=== PATIENT | male | born 1960 | race Asian ===

== ENCOUNTER → 2023-04-24 | Emergency (ER) | payer MEDICARE, OTHER ==
[~2023-04-24] MED LIST: ACETAMINOPHEN 500 MG TAB ONE
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
[2023-04-24 21:22] VITALS: BP 138/86; TEMP 97.3; O2SAT 100
== END ==
LOC: ER 18:34
DX: G44.319 Acute post-traumatic headache, not intractable (principal); M54.2 Cervicalgia; M25.511 Pain in right shoulder; V59.40XA Driver of pick-up truck or van injured in collision with unspecified motor vehicles in traffic accident, initial encounter; G20.A1 Parkinson's disease without dyskinesia, without mention of fluctuations; Z95.0 Presence of cardiac pacemaker; Z88.1 Allergy status to other antibiotic agents; Z88.6 Allergy status to analgesic agent; Z88.5 Allergy status to narcotic agent; Z91.013 Allergy to seafood; Z91.040 Latex allergy status
CPT/HCPCS: 70450; 72125; 99283

== ENCOUNTER 2023-09-21 17:19 | Emergency (ER) | payer OTHER ==
[2023-09-21] MEDS ORDERED: LEVALBUTEROL 1.25 MG/3 ML NEB ONE (17:35)
[2023-09-21] MEDS ORDERED: NA CHLORIDE 0.9% 500 ML ONE (17:35)
[2023-09-21] MEDS ORDERED: METHYLPREDNISOLONE 125 MG INJ ONE (17:35)
[2023-09-21] MEDS ORDERED: predniSONE 20 MG TAB ONE (17:35)
[2023-09-21 17:48] LABS: Absolute Eosinophils 0.3 K/uL (0-0.5); Absolute Lymphocytes (CBC) 1.3 K/uL (0.7-4.9); Absolute Monocytes 0.5 K/uL (0.1-1.3); Absolute Neutrophil 7.4 K/uL (1.8-8.0); Basophils % 0.5 % (0-1.3); Eosinophils % 3.2 % (0-4.4); Hematocrit 38.6 % (39.6-49.0); Hemoglobin 13.1 g/dL (13.6-17.9); Lymphocytes % 13.1 % (15.3-44.8); MCH 34.4 pg (27.0-35.0); MCV 101.2 fL (80-100); MPV 7.1 fL (7.6-11.3); Monocytes % 5.2 % (3.3-12.3); Nucleated Red Blood Cells % 0.1 % (0-0); Platelets 209 thou/uL (152-406); RBC Red Blood Cell Count 3.82 M/uL (4.33-5.43); Red Cell Distribution Width 14.2 % (12.1-15.2)
[2023-09-21 17:53] LABS: PT Prothrombin Time 11.5 SECONDS (9.5-12.5); Protime INR 1.05
[2023-09-21 18:01] LABS: SARS-CoV-2 Antigen CONTROL BLUE LINE VIS/BG OK; SARS-CoV-2 Antigen Rapid Res Negative (Negative)
[2023-09-21 18:13] LABS: Albumin 3.8 g/dL (3.4-5.0); Albumin/Globulin Ratio 1.2 (1.1-1.8); Anion Gap 6.2 mEq/L (5.0-15.0); Bilirubin Direct 0.2 mg/dL (0-0.2); Bilirubin Indirect, Calculated 0.6 mg/dL (0.2-0.8); Bilirubin Total 0.8 mg/dL (0.2-1.0); Globulin 3.3 g/dL (2.3-3.5); Magnesium 2.6 mg/dL (1.6-2.4); Potassium 3.2 mEq/L (3.5-5.1); Protein, Total 7.1 g/dL (6.4-8.2); Troponin High Sensitivity 4.8 pg/mL (<58.9)
--- NOTE | 2023-09-21 18:23 | RAD REPORT ---
EXAM DESCRIPTION: Virginiat Single View09/21/2023 6:06 pm CLINICAL HISTORY: DYSPNEA COMPARISON: Chest Single View dated 08/28/2016; Chest Single View dated 05/15/2016; CHEST SINGLE VIEW d ated 12/03/2012; CHEST SINGLE VIEW dated 10/31/2009 TECHNIQUE: Portable AP view of the chest. FINDINGS: The lungs are clear. No pneumothorax or effusion. The cardiomediastinal contours are unre markable. Left chest wall pacer in place. Left atrial appendage occlusion device present. IMPRESSION: No acute cardiopulmonary process.
--- NOTE | 2023-09-21 18:35 | ER ---
Nurse's Notes [facility] Name: Justin Hancock Age: 63 yrs Sex: Male : 1960 Arrival Date: 09/21/2023 Time: 17:19 Bed 5 Private MD: Diagnosis: COPD/ Chronic obstructive pulmonary disease with (acute) exacerbation;Dyspnea;Hypokalemia Presentation: 09/20 17:25 Chief complaint: EMS states: "toned out for SOB that occurred while sitting at home. Pt mb9 gave himself 2 breathing treatments and had no relief.". Coronavirus screen: Vaccine status: Patient reports receiving the 2nd dose of the covid vaccine. Ebola Screen: No symptoms or risks identified at this time. Initial Sepsis Screen: Does the patient meet any 2 criteria? No. Patient's initial sepsis screen is negative. Does the patient have a suspected source of infection? No. Patient's initial sepsis screen is negative. Risk Assessment: Do you want to hurt yourself or someone else? Patient reports no desire to harm self or others. Onset of symptoms was September 21, 2023. 17:25 Method Of Arrival: EMS: [facility] mb9 17:25 Acuity: TOM 2 mb9 Triage Assessment: 17:29 General: Appears in no apparent distress. Behavior is calm, cooperative. Pain: Denies mb9 pain. EENT: No signs and/or symptoms were reported regarding the EENT system. Neuro: Santiago Agitation-Sedation Scale (RASS): 0 - Alert and Calm Level of Consciousness is awake, alert, obeys commands, Oriented to person, place, time, situation, Appropriate for age. Cardiovascular: Patient's skin is warm and dry. Respiratory: Reports shortness of breath Airway is patent Respiratory effort is even, unlabored, Respiratory pattern is regular, symmetrical. GI: No signs and/or symptoms were reported involving the gastrointestinal system. : No signs and/or symptoms were reported regarding the genitourinary system. Derm: Skin is pink, warm \\T\\ dry. Musculoskeletal: Range of motion: intact in all extremities. Historical: - Allergies: 17:26 clams; mb9 17:26 Demerol; mb9 17:26 Keflex; mb9 17:26 Latex; mb9 17:26 NSAIDS; mb9 17:26 Rocephin; mb9 17:26 Toradol; mb9 17:26 Tramadol HCl; mb9 - Home Meds: 17:26 carbidopa-levodopa 25-100 mg Oral tab twice a day [Active]; gabapentin 900 BID Oral tab mb9 twice a day [Active]; Weidman Carbonate Oral [Active]; atorvastatin oral [Active]; Albuterol Nebulizer [Active]; - PMHx: 17:26 Atrial fibrillation; GERD; Hypertension; HEART FAILURE; Bipolar disorder; CVA March; Myocardial infarction; Parkinsons; Pulmonary Embolism; - PSHx: 17:26 pacemaker; Watchman's procedure; Cholecystectomy; mb9 - Immunization history:: Adult Immunizations up to date. - Infectious Disease History:: Denies. - Social history:: Smoking status: Patient denies any tobacco usage or history of. Screenin:29 [facility] ED Fall Risk Assessment (Adult) History of falling in the last 3 months, mb9 including since admission No falls in past 3 months (0 pts) Confusion or Disorientation No (0 pts) Intoxicated or Sedated No (0 pts) Impaired Gait No (0 pts) Mobility Assist Device Used No (0 pt) Altered Elimination No (0 pt) Score/Fall Risk Level 0 - 2 = Low Risk Oriented to surroundings, Maintained a safe environment, Educated pt \\T\\ family on fall prevention, incl call for assistance when getting out of bed. Abuse screen: Denies threats or abuse. Nutritional screening: No deficits noted. Tuberculosis screening: No symptoms or risk factors identified. Assessment: 17:43 Reassessment: see triage assessment. mb9 Vital Signs: 17:25 BP 158 / 86; Pulse 74; Resp 18; Temp 98.2; Pulse Ox 100% ; Weight 72.57 kg; Height 5 mb9 ft. 5 in. ; 18:35 BP 117 / 80; Pulse 74; Resp 18; Pulse Ox 100% on R/A; mb9 17:25 Body Mass Index 26.63 (72.57 kg, 165.1 cm) mb9 ED Course: 17:24 Patient arrived in ED. nicolette 17:25 Charlie Dee MD is Attending Physician. [facility] 17:25 Yodit Gonzales RN is Primary Nurse. mb9 17:26 Triage completed. mb9 17:28 Arm band placed on. mb9 17:29 Placed in gown. Bed in low position. Call light in reach. Side rails up X 1. Provided mb9 Education on: press call light if needing anything. Client placed on continuous cardiac and pulse oximetry monitoring. NIBP monitoring applied. director home on. 17:42 SARS RAPID Sent. mb9 17:42 Flu Sent. mb9 17:43 Initial lab(s) drawn, by me, sent to lab. COVID swab sent to lab. Flu and/or RSV swab mb9 sent to lab. Inserted saline lock: 22 gauge in right forearm, using aseptic technique. 18:08 XRAY Chest (1 view) In Process Unspecified. EDMS 18:43 No provider procedures requiring assistance completed. IV discontinued, intact, mb9 bleeding controlled, No redness/swelling at site. Pressure dressing applied. Administered Medications: 17:42 Drug: NS 0.9% IV 500 ml IV at bolus once Route: IV; Rate: bolus; Site: right forearm; mb9 18:36 Follow up: Response: No adverse reaction; IV Status: Completed infusion mb9 17:42 Drug: MethylPrednisoLONE IVP 125 mg IVP once Route: IVP; Site: right forearm; mb9 18:36 Follow up: Response: No adverse reaction mb9 17:42 Drug: predniSONE PO 40 mg PO once Route: PO; mb9 18:36 Follow up: Response: No adverse reaction mb9 17:43 Drug: Levalbuterol Inhalation 1.25 mg Inhalation once Route: Inhalation; mb9 17:43 Drug: Levalbuterol Inhalation 1.25 mg Inhalation once Route: Inhalation; mb9 18:39 Drug: Potassium PO Effervescent Tablet 50 mEq PO once; dissolve in 4 ounces of water or mb9 juice Route: PO; Medication: 17:30 VIS not applicable for this client. mb9 Outcome: 18:35 Discharge ordered by . nicolette 18:43 Discharged to home ambulatory, mb9 18:43 Condition: stable 18:43 Discharge instructions given to patient, Instructed on discharge instructions, follow up and referral plans. Demonstrated understanding of instructions, follow-up care, medications, Prescriptions given X 4, 18:44 Patient left the ED. mb9 Signatures: Dispatcher [employer] Charlie Brandt MD MD cha Breneman, Yodit Sewell RN RN mb9
--- NOTE | 2023-09-21 18:36 | EDPHYS ---
Physician Documentation [facility] Name: Justni Hancock Age: 63 yrs Sex: Male : 1960 Arrival Date: 09/21/2023 Time: 17:19 Bed 5 Private MD: ED Physician Charlie Dee HPI: 09/20 17:28 This 63 yrs old Male presents to ER via EMS with complaints of DYSPNEA, COPD nicolette EXACERABATION. 17:28 The patient or guardian reports cough, difficulty breathing. Onset: The nicolette symptoms/episode began/occurred just prior to arrival. Modifying factors: The symptoms are alleviated by remaining still, the symptoms are aggravated by lying flat, talking. Severity of symptoms: At their worst the symptoms were moderate, in the emergency department the symptoms have improved, moderately. Associated signs and symptoms: Pertinent positives: rhinorrhea. Modifying factors: The symptoms are alleviated by nebulizer treatment, the symptoms are aggravated by damp environment, dust, exertion. Severity of symptoms: At their worst the symptoms were moderate in the emergency department the symptoms are unchanged. Historical: - Allergies: 17:26 clams; mb9 17:26 Demerol; mb9 17:26 Keflex; mb9 17:26 Latex; mb9 17:26 NSAIDS; mb9 17:26 Rocephin; mb9 17:26 Toradol; mb9 17:26 Tramadol HCl; 9 - Home Meds: 17:26 carbidopa-levodopa 25-100 mg Oral tab twice a day [Active]; gabapentin 900 BID Oral tab mb9 twice a day [Active]; Quentin Carbonate Oral [Active]; atorvastatin oral [Active]; Albuterol Nebulizer [Active]; - PMHx: 17:26 Atrial fibrillation; GERD; Hypertension; HEART FAILURE; Bipolar disorder; CVA March; Myocardial infarction; Parkinsons; Pulmonary Embolism; - PSHx: 17:26 pacemaker; Watchman's procedure; Cholecystectomy; - Immunization history:: Adult Immunizations up to date. - Infectious Disease History:: Denies. - Social history:: Smoking status: Patient denies any tobacco usage or history of. ROS: 17:29 Constitutional: Negative for fever, chills, and weight loss, Eyes: Negative for injury, nicolette pain, redness, and discharge, ENT: Negative for injury, pain, and discharge, Neck: Negative for injury, pain, and swelling, Cardiovascular: Negative for chest pain, palpitations, and edema, Abdomen/GI: Negative for abdominal pain, nausea, vomiting, diarrhea, and constipation, Back: Negative for injury and pain, : Negative for injury, bleeding, discharge, and swelling, MS/Extremity: Negative for injury and deformity, Skin: Negative for injury, rash, and discoloration, Neuro: Negative for headache, weakness, numbness, tingling, and seizure, Psych: Negative for depression, anxiety, suicide ideation, homicidal ideation, and hallucinations, Allergy/Immunology: Negative for hives, rash, and allergies, Endocrine: Negative for neck swelling, polydipsia, polyuria, polyphagia, and marked weight changes, Hematologic/Lymphatic: Negative for swollen nodes, abnormal bleeding, and unusual bruising, 17:29 Respiratory: Positive for cough, shortness of breath, on exertion. Exam: 17:29 Constitutional: This is a well developed, well nourished patient who is awake, alert, nicolette and in no acute distress. Head/Face: Normocephalic, atraumatic. Eyes: Pupils equal round and reactive to light, extra-ocular motions intact. Lids and lashes normal. Conjunctiva and sclera are non-icteric and not injected. Cornea within normal limits. Periorbital areas with no swelling, redness, or edema. ENT: Nares patent. No nasal discharge, no septal abnormalities noted. Tympanic membranes are normal and external auditory canals are clear. Oropharynx with no redness, swelling, or masses, exudates, or evidence of obstruction, uvula midline. Mucous membranes moist. Neck: Trachea midline, no thyromegaly or masses palpated, and no cervical lymphadenopathy. Supple, full range of motion without nuchal rigidity, or vertebral point tenderness. No Meningismus. Chest/axilla: Normal chest wall appearance and motion. Nontender with no deformity. No lesions are appreciated. Cardiovascular: Regular rate and rhythm with a normal S1 and S2. No gallops, murmurs, or rubs. Normal PMI, no JVD. No pulse deficits. Respiratory: Lungs have equal breath sounds bilaterally, clear to auscultation and percussion. No rales, rhonchi or wheezes noted. No increased work of breathing, no retractions or nasal flaring. Abdomen/GI: Soft, non-tender, with normal bowel sounds. No distension or tympany. No guarding or rebound. No evidence of tenderness throughout. Back: No spinal tenderness. No costovertebral tenderness. Full range of motion. Male : Normal genitalia with no discharge or lesions. Skin: Warm, dry with normal turgor. Normal color with no rashes, no lesions, and no evidence of cellulitis. MS/ Extremity: Pulses equal, no cyanosis. Neurovascular intact. Full, normal range of motion. Neuro: Awake and alert, GCS 15, oriented to person, place, time, and situation. Cranial nerves II-XII grossly intact. Motor strength 5/5 in all extremities. Sensory grossly intact. Cerebellar exam normal. Normal gait. Psych: Awake, alert, with orientation to person, place and time. Behavior, mood, and affect are within normal limits. 17:29 ECG was reviewed by the Attending Physician. Vital Signs: 17:25 BP 158 / 86; Pulse 74; Resp 18; Temp 98.2; Pulse Ox 100% ; Weight 72.57 kg; Height 5 mb9 ft. 5 in. ; 18:35 BP 117 / 80; Pulse 74; Resp 18; Pulse Ox 100% on R/A; mb9 17:25 Body Mass Index 26.63 (72.57 kg, 165.1 cm) mb9 MDM: 17:24 Patient medically screened. nicolette 17:25 Patient medically screened. nicolette 17:32 Differential diagnosis: obstructed airway, bronchitis, flu, URI. Antibiotic nicolette administration: The patient is discharged and will get outpatient antibiotics, Zithromax. Differential Diagnosis: Obstructed Airway Bronchitis Influenza Upper Respiratory Infection Sinusitis Pharyngitis Asthma Exacerbation Viral Syndrome Pneumonia. Data reviewed: vital signs, nurses notes, lab test result(s), EKG, radiologic studies, plain films. Consideration of Admission/Observation Escalation of care including admission/observation considered. I considered the following discharge prescriptions or medication management in the emergency department Medications were administered in the Emergency Department. See MAR. Independent interpretation of the following test(s) in the Emergency Department EKG: See my EKG interpretation above. Test considered but Not performed: CT: CT CHEST RO PE. Care significantly affected by the following chronic conditions: Hypertension, Congestive Heart Failure, Chronic Obstructive Pulmonary Disease, Obesity, A FIB AND BIPOLAR. Counseling: I had a detailed discussion with the patient and/or guardian regarding the historical points, exam findings, and any diagnostic results supporting the discharge/admit diagnosis, lab results, radiology results, the need for outpatient follow up, for definitive care, a family practitioner. 09/20 17:26 Order name: Basic Metabolic Panel; Complete Time: 18:34 [facility] 09/20 17:26 Order name: CBC with Diff; Complete Time: 18:34 [facility] 09/20 17:26 Order name: LFT's; Complete Time: 18:34 09/20 17:26 Order name: Magnesium; Complete Time: 18:34 09/20 17:26 Order name: NT PRO-BNP; Complete Time: 18:34 [facility] 09/20 17:26 Order name: PT-INR; Complete Time: 18:34 [facility] 09/20 17:26 Order name: Troponin HS; Complete Time: 18:34 [facility] 09/20 17:28 Order name: Flu; Complete Time: 18:34 [facility] 09/20 17:28 Order name: SARS RAPID; Complete Time: 18:34 [facility] 09/20 17:26 Order name: XRAY Chest (1 view); Complete Time: 18:34 [facility] 09/20 17:26 Order name: Cardiac monitoring; Complete Time: 17:30 09/20 17:26 Order name: EKG - Nurse/Tech; Complete Time: 17:30 [facility] 09/20 17:26 Order name: IV Saline Lock; Complete Time: 17:43 [facility] 09/20 17:26 Order name: Labs collected and sent; Complete Time: 17:43 [facility] 09/20 17:26 Order name: O2 Per Protocol; Complete Time: 17:30 09/20 17:26 Order name: O2 Sat Monitoring; Complete Time: 17:30 [facility] EC:29 Rate is 71 beats/min. Rhythm is regular. QRS [place] is Normal. ME interval is normal. QRS nicolette interval is normal. QT interval is normal. No Q waves. T waves are Normal. No ST changes noted. Clinical impression: NSR w/ Non-specific ST/T Changes and No evidence of ischemia. Interpreted by me. Reviewed by me. Administered Medications: 17:42 Drug: NS 0.9% IV 500 ml IV at bolus once Route: IV; Rate: bolus; Site: right forearm; mb9 18:36 Follow up: Response: No adverse reaction; IV Status: Completed infusion mb9 17:42 Drug: MethylPrednisoLONE IVP 125 mg IVP once Route: IVP; Site: right forearm; mb9 18:36 Follow up: Response: No adverse reaction mb9 17:42 Drug: predniSONE PO 40 mg PO once Route: PO; mb9 18:36 Follow up: Response: No adverse reaction mb9 17:43 Drug: Levalbuterol Inhalation 1.25 mg Inhalation once Route: Inhalation; mb9 17:43 Drug: Levalbuterol Inhalation 1.25 mg Inhalation once Route: Inhalation; mb9 18:39 Drug: Potassium PO Effervescent Tablet 50 mEq PO once; dissolve in 4 ounces of water or mb9 juice Route: PO; Disposition Summary: 09/21/23 18:35 Discharge Ordered Notes: Location: Home nicolette Problem: new nicolette Symptoms: have improved nicolette Condition: Stable nicolette Diagnosis - COPD/ Chronic obstructive pulmonary disease with (acute) exacerbation nicolette - Dyspnea nicolette - Hypokalemia nicolette Followup: nicolette - With: Private Physician - When: 2 - 3 days - Reason: Recheck today's complaints, Continuance of care, Re-evaluation by your physician Discharge Instructions: - Discharge Summary Sheet nicolette - Chronic Obstructive Pulmonary Disease nicolette - Potassium Content of Foods nicolette - Shortness of Breath, Adult nicolette - Shortness of Breath, Adult, [id number] nicolette - Chronic Obstructive Pulmonary Disease Exacerbation nicolette - Chronic Obstructive Pulmonary Disease, [id number] nicolette - Cough, Adult, [id number] nicolette - Hypokalemia nicolette Forms: - Medication Reconciliation Form nicolette - Antibiotic Education nicolette - Prescription Opioid Use nicolette - Patient Portal Instructions nicolette - Leadership Thank You Letter [facility] Prescriptions: - albuterol sulfate 90 mcg/actuation Inhalation HFA Aerosol Inhaler - inhale 2 puff INHALATION route every 4 to 6 hours as needed for shortness of nicolette breath or wheezing; 1 unit; Refills: 0, Product Selection Permitted - Albuterol Sulfate 2.5 mg /3 mL (0.083 %) Inhalation Solution for Nebulization - inhale 1 unit NEBULIZATION route every 8 hours As needed; 25 unit; Refills: 0, nicolette Product Selection Permitted - Zithromax Z-Francisco 250 mg Oral Tablet - take 1 tablet ORAL route as directed for 5 days Day 1 - take two (2) tablets nicolette one time. Day 2, 3, 4 , 5 take one (1) tablet once daily.; 6 tablet; Refills: 0, Product Selection Permitted - Prednisone 20 mg Oral Tablet - take 2 tablets ORAL route once daily for 5 days; 10 tablet; Refills: 0, Product nicolette Selection Permitted Signatures: Dispatcher [employer] Charlie Brandt MD MD cha Breneman, Yodit Sewell, RN RN mb9 Corrections: (The following items were deleted from the chart) 17:26 17:26 Chest Single View+RAD.RAD.BRZ ordered. HERIBERTO LOUIS
[2023-09-21] MEDS ORDERED: POTASSIUM 25 MEQ EFFERV TAB ONE (18:37)
[2023-09-21 19:02] VITALS: BP 117/80; TEMP 98.2; O2SAT 100
--- NOTE | 2023-09-25 15:07 | EKG ---
Test Date: 2023-09-21 Test Time: 17:25:23 Artist Woodblock: TRAE MEASUREMENT RESULTS: Intervals: Rate: 71 MN: 186 QRSD: 102 QT: 458 QTc: 497 [place]: P: 48 MN: 186 QRS: 58 T: 58 INTERPRETIVE STATEMENTS: Normal sinus rhythm Prolonged QT Abnormal ECG Compared to ECG 08/28/2016 10:11:52 Prolonged QT interval now present T-wave abnormality no longer present Electronically Signed On 09-25-23 14:55:31 CDT by Kishan Gallegos
--- NOTE | 2023-09-25 15:07 | EKG ---
Test Date: 2023-09-21 Test Time: 17:25:52 Furniture Designer: TRAE MEASUREMENT RESULTS: Intervals: Rate: 71 GA: 140 QRSD: 108 QT: 432 QTc: 469 [place]: P: 27 GA: 140 QRS: 62 T: 42 INTERPRETIVE STATEMENTS: Normal sinus rhythm with sinus arrhythmia ST abnormality, possible digitalis effect Abnormal ECG Compared to ECG 09/21/2023 17:25:23 ST (T wave) deviation now present Prolonged QT interval no longer present Electronically Signed On 09-25-23 14:55:30 CDT by Kishan Gallegos
== END 2023-09-21 18:44 | disposition home or self-care (01) ==
LOC: ER 17:19
DX: J44.1 Chronic obstructive pulmonary disease with (acute) exacerbation (principal); E87.6 Hypokalemia; Z11.52 Encounter for screening for COVID-19; Z95.0 Presence of cardiac pacemaker
CPT/HCPCS: 96361; 93005 ×2; 85025; 80048; 36415; 83735; 85610; 80076; 84484; 83880; 87804 ×2; 71045; 96374; 99285; 87811; J7512; J7614; J2919; J7040

== ENCOUNTER 2023-10-17 01:46 | Emergency (ER) | payer OTHER ==
[2023-10-17] MEDS ORDERED: METHYLPREDNISOLONE 125 MG INJ ONE (02:26)
[2023-10-17] MEDS ORDERED: ALBUTEROL 2.5 MG/3 ML NEB SOL ONE (02:26)
[2023-10-17] MEDS ORDERED: IPRATROPIUM BROM 0.5MG/2.5ML ONE (02:26)
[2023-10-17 03:13] LABS: Albumin 3.9 g/dL (3.4-5.0); Albumin/Globulin Ratio 1.2 (1.1-1.8); Anion Gap 9.1 mEq/L (5.0-15.0); Bilirubin Direct 0.3 mg/dL (0-0.2); Bilirubin Indirect, Calculated 0.4 mg/dL (0.2-0.8); Bilirubin Total 0.7 mg/dL (0.2-1.0); Globulin 3.3 g/dL (2.3-3.5); Potassium 3.1 mEq/L (3.5-5.1); Protein, Total 7.2 g/dL (6.4-8.2); Troponin High Sensitivity 5.1 pg/mL (<58.9)
[2023-10-17 04:13] LABS: Hemoglobin 12.7 g/dL (13.6-17.9)
[2023-10-17 04:14] LABS: Absolute Neutrophil 9.5 K/uL (1.8-8.0); Basophils % 0.2 % (0-1.3); Eosinophils % 4.2 % (0-4.4); Lymphocytes % 11.5 % (15.3-44.8); MCH 34.3 pg (27.0-35.0); MCHC 34.3 g/dL (32.0-36.0); MPV 7.2 fL (7.6-11.3); Monocytes % 5.1 % (3.3-12.3); Platelets 269 thou/uL (152-406); Red Cell Distribution Width 13.9 % (12.1-15.2)
[2023-10-17 04:15] LABS: Absolute Eosinophils 0.5 K/uL (0-0.5); Absolute Lymphocytes (CBC) 1.4 K/uL (0.7-4.9); Absolute Monocytes 0.6 K/uL (0.1-1.3)
--- NOTE | 2023-10-17 04:19 | EDPHYS ---
Physician Documentation [facility] Name: Justin Hancock Age: 63 yrs Sex: Male : 1960 Arrival Date: 10/17/2023 Time: 01:46 Bed 7 Private MD: ED Physician Rajani Mendez HPI: 10/16 02:43 This 63 yrs old Male presents to ER via EMS with complaints of Shortness Of sp3 Breath. 02:43 63-year-old male with a history of COPD exacerbation, atrial fibrillation, prior CVA, sp3 multiple PEs currently on Brilinta, bipolar disease now presents to the ED via EMS for chief complaint cough, congestion and COPD exacerbation. Patient has been taking his nebulizer at home coupled with his rescue inhaler and inhaled steroid but he states he is gotten into a worsening laceration over the last 48 hours. 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 Patient denies fever, chest pain, abdominal pain, nausea, vomiting, diarrhea, rash, or any other signs or symptoms on ROS at this time.. Historical: - Allergies: 02:04 clams; tm6 02:04 Demerol; tm6 02:04 Keflex; tm6 02:04 Latex; tm6 02:04 NSAIDS; tm6 02:04 Toradol; tm6 02:04 Tramadol HCl; tm6 02:04 Rocephin; tm6 - PMHx: 02:04 Atrial fibrillation; Bipolar disorder; CVA March 2016; GERD; HEART FAILURE; tm6 Hypertension; Myocardial infarction; Parkinsons; Pulmonary Embolism; - PSHx: 02:04 Cholecystectomy; pacemaker; Watchman's procedure; tm6 - Immunization history:: Client reports receiving the 2nd dose of the Covid vaccine. - Infectious Disease History:: Denies. - Social history:: Smoking status: Patient denies any tobacco usage or history of. Patient uses alcohol, occasionally. ROS: 02:44 Constitutional: Negative for fever, chills, and weight loss, Eyes: Negative for injury, sp3 pain, redness, and discharge, Neck: Negative for injury, pain, and swelling, Cardiovascular: Negative for chest pain, palpitations, and edema, Abdomen/GI: Negative for abdominal pain, nausea, vomiting, diarrhea, and constipation, Back: Negative for injury and pain, MS/Extremity: Negative for injury and deformity, Skin: Negative for injury, rash, and discoloration, Neuro: Negative for headache, weakness, numbness, tingling, and seizure, Psych: Negative for depression, anxiety, suicide ideation, homicidal ideation, and hallucinations, Allergy/Immunology: Negative for hives, rash, and allergies, Endocrine: Negative for neck swelling, polydipsia, polyuria, polyphagia, and marked weight changes, Hematologic/Lymphatic: Negative for swollen nodes, abnormal bleeding, and unusual bruising, 02:44 All other systems are negative, Exam: 02:44 Constitutional: This is a well developed, well nourished patient who is awake, alert, sp3 and in no acute distress. Head/Face: Normocephalic, atraumatic. Eyes: Pupils equal round and reactive to light, extra-ocular motions intact. Lids and lashes normal. Conjunctiva and sclera are non-icteric and not injected. Cornea within normal limits. Periorbital areas with no swelling, redness, or edema. Neck: Trachea midline, no thyromegaly or masses palpated, and no cervical lymphadenopathy. Supple, full range of motion without nuchal rigidity, or vertebral point tenderness. No Meningismus. Chest/axilla: Normal chest wall appearance and motion. Nontender with no deformity. No lesions are appreciated. Cardiovascular: Regular rate and rhythm with a normal S1 and S2. No gallops, murmurs, or rubs. Normal PMI, no JVD. No pulse deficits. Abdomen/GI: Soft, non-tender, with normal bowel sounds. No distension or tympany. No guarding or rebound. No evidence of tenderness throughout. Back: No spinal tenderness. No costovertebral tenderness. Full range of motion. Skin: Warm, dry with normal turgor. Normal color with no rashes, no lesions, and no evidence of cellulitis. MS/ Extremity: Pulses equal, no cyanosis. Neurovascular intact. Full, normal range of motion. Neuro: Awake and alert, GCS 15, oriented to person, place, time, and situation. Cranial nerves II-XII grossly intact. Motor strength 5/5 in all extremities. Sensory grossly intact. Cerebellar exam normal. Normal gait. Psych: Awake, alert, with orientation to person, place and time. Behavior, mood, and affect are within normal limits. 02:44 Respiratory: Scattered wheeze without respiratory distress., 03:43 ECG was reviewed by the Attending Physician. EKG demonstrates paced rhythm with sp3 adequate capture at a rate of 111 bpm Vital Signs: 01:58 BP 138 / 90; Pulse 90; Resp 19; Temp 97.8(TE); Pulse Ox 98% on R/A; MAP 103 mmHg; tm6 Weight 68.04 kg; Height 5 ft. 7 in. ; Pain 0/10; 02:42 BP 126 / 104; Pulse 87; Pulse Ox 98% on R/A; Pain 0/10; tm6 03:08 BP 120 / 79; Pulse 92; Resp 15; Temp 97.8; Pulse Ox 99% ; Pain 0/10; bm8 04:22 BP 98 / 72; Pulse 92; Resp 17; Temp 97.8; Pulse Ox 96% on R/A; Pain 0/10; bm8 01:58 Body Mass Index 23.49 (68.04 kg, 170.18 cm) tm6 01:58 Pain Scale: Adult tm6 02:42 Pain Scale: Adult tm6 03:08 Pain Scale: Adult bm8 04:22 Pain Scale: Adult bm8 [place] Score: 03:08 Eye Response: spontaneous(4). Motor Response: obeys commands(6). Verbal Response: bm8 oriented(5). Total: 15. 04:22 Eye Response: spontaneous(4). Motor Response: obeys commands(6). Verbal Response: bm8 oriented(5). Total: 15. MDM: 01:56 Patient medically screened. sp3 02:45 Data reviewed: vital signs, nurses notes, old medical records, lab test result(s), EKG, sp3 radiologic studies. ED course: 63-year-old male with PMH above now with COPD exacerbation versus bronchitis versus pneumonia versus CHF versus acute coronary syndrome versus other. Admit highly suspicious for sepsis, shock, PE, or any other critical process at this time. Patient is on Brilinta already. Will administer nebulizer and steroids IV if workup negative and patient is improved, we will safely discharge patient home.. 04:18 ED course: Patient feeling much improved. He is resting comfortably sleeping without sp3 any difficulty breathing. Will safely discharged home on p.o. prednisone with continued use of his nebulizers. Antibiotics not indicated at this time.. 10/16 01:56 Order name: Basic Metabolic Panel; Complete Time: 04:16 sp3 10/16 01:56 Order name: CBC with Diff; Complete Time: 04:16 sp3 10/16 01:56 Order name: LFT's; Complete Time: 04:16 sp3 10/16 01:56 Order name: Magnesium; Complete Time: 04:16 sp3 10/16 01:56 Order name: NT PRO-BNP; Complete Time: 04:16 sp3 10/16 01:56 Order name: Troponin HS; Complete Time: 04:16 sp3 10/16 01:56 Order name: XRAY Chest (1 view) sp3 10/16 01:56 Order name: Cardiac monitoring; Complete Time: 02:42 sp3 10/16 01:56 Order name: EKG - Nurse/Tech; Complete Time: 02:42 sp3 10/16 01:56 Order name: IV Saline Lock; Complete Time: 02:17 sp3 10/16 01:56 Order name: Labs collected and sent; Complete Time: 02:17 sp3 10/16 01:56 Order name: O2 Per Protocol; Complete Time: 02:17 sp3 10/16 01:56 Order name: O2 Sat Monitoring; Complete Time: 02:17 sp3 Administered Medications: 02:42 Drug: DuoNeb Nebulize (3:1) (2.5 mg - 0.5 mg) 3 ml Nebulizer once Route: Nebulizer; tm6 03:10 Follow up: Response: No adverse reaction bm8 02:42 Drug: MethylPrednisoLONE IVP 125 mg IVP once Route: IVP; Site: right forearm; tm6 03:10 Follow up: Response: No adverse reaction bm8 Disposition Summary: 10/17/23 04:18 Discharge Ordered Notes: Location: Home sp3 Condition: Stable sp3 Diagnosis - COPD exacerbation sp3 Followup: sp3 - With: Private Physician - When: Upon discharge from the Emergency Department - Reason: Continuance of care Discharge Instructions: - Discharge Summary Sheet sp3 - Living With COPD sp3 Forms: - Medication Reconciliation Form sp3 - Antibiotic Education sp3 - Prescription Opioid Use sp3 - Patient Portal Instructions sp3 - Leadership Thank You Letter sp3 Prescriptions: - Prednisone 20 mg Oral Tablet - take 2 tablets ORAL route once daily for 5 days; 10 tablet; Refills: 0, Product sp3 Selection Permitted Signatures: Dispatcher [employer] EDMS Rajani Mendez MD MD sp3 Abraham Ruelas RN RN tm6 Prosper Barrett RN bm8 Corrections: (The following items were deleted from the chart) 01:56 01:56 BASIC METABOLIC PANEL+C.LAB.BRZ ordered. EDMS EDMS 01:56 01:56 CBC+H.LAB.BRZ ordered. EDMS EDMS 01:56 01:56 HEPATIC FUNCTION+C.LAB.BRZ ordered. EDMS EDMS 01:56 01:56 MAGNESIUM+C.LAB.BRZ ordered. EDMS EDMS 01:56 01:56 PROBNP+C.LAB.BRZ ordered. EDMS EDMS 01:56 01:56 Troponin High Sensitivity+C.LAB.BRZ ordered. EDMS EDMS 01:56 01:56 Chest Single View+RAD.RAD.BRZ ordered. EDMS EDMS
--- NOTE | 2023-10-17 04:19 | ER ---
Nurse's Notes [facility] Name: Justin Hancock Age: 63 yrs Sex: Male : 1960 Arrival Date: 10/17/2023 Time: 01:46 Bed 7 Private MD: Diagnosis: COPD exacerbation Presentation: 10/16 01:58 Chief complaint: EMS states: patient became SOB around 11pm, history of COPD. Upon EMS tm6 arrival, patient was 90% RA. EMS gave patient albuterol and atrovent neb treatment and placed on 6L NC. Patient states he is feeling nauseous and took 8mg zofran PO at home. Patient denies CP. Upon ER arrival, patient 98% on RA. Coronavirus screen: Vaccine status: Patient reports receiving the 2nd dose of the covid vaccine. Ebola Screen: Patient negative for fever greater than or equal to 101.5 degrees Fahrenheit, and additional compatible Ebola Virus Disease symptoms Patient denies exposure to infectious person. Patient denies travel to an Ebola-affected area in the 21 days before illness onset. No symptoms or risks identified at this time. Initial Sepsis Screen: Does the patient meet any 2 criteria? No. Patient's initial sepsis screen is negative. Does the patient have a suspected source of infection? No. Patient's initial sepsis screen is negative. Risk Assessment: Do you want to hurt yourself or someone else? Patient reports no desire to harm self or others. Onset of symptoms was October 16, 2023 at 23:00. Care prior to arrival: Medication(s) given: Albuterol Neb x 1, Atrovent Neb x 1, placed on 6L NC. 01:58 Method Of Arrival: EMS: [facility] tm6 01:58 Acuity: TOM 3 tm6 01:58 Care prior to arrival: patient took home Zofran 8mg PO. tm6 Triage Assessment: 02:04 General: Appears in no apparent distress. Behavior is calm, cooperative. Pain: Denies tm6 pain. EENT: No signs and/or symptoms were reported regarding the EENT system. Neuro: Level of Consciousness is awake, alert, obeys commands, Oriented to person, place, time, situation. Cardiovascular: Reports shortness of breath, Denies chest pain, Patient's skin is warm and dry. Respiratory: Reports shortness of breath since 11pm Airway is patent Respiratory effort is even, unlabored, Respiratory pattern is regular, symmetrical, Onset: The symptoms/episode began/occurred suddenly, the patient has mild shortness of breath. GI: No signs and/or symptoms were reported involving the gastrointestinal system. Abdomen is flat, non-distended. : No signs and/or symptoms were reported regarding the genitourinary system. Derm: No signs and/or symptoms reported regarding the dermatologic system. Musculoskeletal: No signs and/or symptoms reported regarding the musculoskeletal system. Historical: - Allergies: 02:04 clams; tm6 02:04 Demerol; tm6 02:04 Keflex; tm6 02:04 Latex; tm6 02:04 NSAIDS; tm6 02:04 Toradol; tm6 02:04 Tramadol HCl; tm6 02:04 Rocephin; tm6 - PMHx: 02:04 Atrial fibrillation; Bipolar disorder; CVA March 2016; GERD; HEART FAILURE; tm6 Hypertension; Myocardial infarction; Parkinsons; Pulmonary Embolism; - PSHx: 02:04 Cholecystectomy; pacemaker; Watchman's procedure; tm6 - Immunization history:: Client reports receiving the 2nd dose of the Covid vaccine. - Infectious Disease History:: Denies. - Social history:: Smoking status: Patient denies any tobacco usage or history of. Patient uses alcohol, occasionally. Screenin:06 [facility] ED Fall Risk Assessment (Adult) History of falling in the last 3 months, tm6 including since admission No falls in past 3 months (0 pts) Confusion or Disorientation No (0 pts) Intoxicated or Sedated No (0 pts) Impaired Gait No (0 pts) Mobility Assist Device Used No (0 pt) Altered Elimination No (0 pt) Score/Fall Risk Level 0 - 2 = Low Risk Oriented to surroundings, Maintained a safe environment, Educated pt \T\ family on fall prevention, incl call for assistance when getting out of bed. Abuse screen: Denies threats or abuse. Denies injuries from another. Nutritional screening: No deficits noted. Tuberculosis screening: No symptoms or risk factors identified. Assessment: 02:06 Reassessment: see triage assessment. Respiratory: Airway is patent Breath sounds are tm6 clear. 02:43 Cardiovascular: Rhythm is ventricular pacer. tm6 03:08 Reassessment: Patient appears in no apparent distress at this time. Patient and/or bm8 family updated on plan of care and expected duration. Pain level reassessed. Patient is alert, oriented x 3, equal unlabored respirations, skin warm/dry/pink. Patient denies pain at this time. Patient states feeling better. Patient states symptoms have improved. General: Appears in no apparent distress. comfortable, Behavior is calm, cooperative, appropriate for age. Pain: Denies pain. Neuro: No deficits noted. Level of Consciousness is awake, alert, obeys commands, Oriented to person, place, time, situation, Appropriate for age. Cardiovascular: Denies chest pain, lightheadedness, shortness of breath, Heart tones S1 S2 present Capillary refill < 3 seconds Patient's skin is warm and dry. Respiratory: Airway is patent Trachea midline Respiratory effort is even, unlabored, Respiratory pattern is regular, symmetrical, Breath sounds are clear bilaterally. GI: No signs and/or symptoms were reported involving the gastrointestinal system. : No signs and/or symptoms were reported regarding the genitourinary system. EENT: No signs and/or symptoms were reported regarding the EENT system. Derm: No signs and/or symptoms reported regarding the dermatologic system. Musculoskeletal: No signs and/or symptoms reported regarding the musculoskeletal system. 04:22 Reassessment: Patient appears in no apparent distress at this time. No changes from bm8 previously documented assessment. Patient and/or family updated on plan of care and expected duration. Pain level reassessed. Patient is alert, oriented x 3, equal unlabored respirations, skin warm/dry/pink. Patient denies pain at this time. Patient states feeling better. Patient states symptoms have improved. Vital Signs: 01:58 BP 138 / 90; Pulse 90; Resp 19; Temp 97.8(TE); Pulse Ox 98% on R/A; MAP 103 mmHg; tm6 Weight 68.04 kg; Height 5 ft. 7 in. ; Pain 0/10; 02:42 BP 126 / 104; Pulse 87; Pulse Ox 98% on R/A; Pain 0/10; tm6 03:08 BP 120 / 79; Pulse 92; Resp 15; Temp 97.8; Pulse Ox 99% ; Pain 0/10; bm8 04:22 BP 98 / 72; Pulse 92; Resp 17; Temp 97.8; Pulse Ox 96% on R/A; Pain 0/10; bm8 01:58 Body Mass Index 23.49 (68.04 kg, 170.18 cm) tm6 01:58 Pain Scale: Adult tm6 02:42 Pain Scale: Adult tm6 03:08 Pain Scale: Adult bm8 04:22 Pain Scale: Adult bm8 Letty Coma Score: 03:08 Eye Response: spontaneous(4). Motor Response: obeys commands(6). Verbal Response: bm8 oriented(5). Total: 15. 04:22 Eye Response: spontaneous(4). Motor Response: obeys commands(6). Verbal Response: bm8 oriented(5). Total: 15. ED Course: 01:55 Patient arrived in ED. kmf 01:55 Rajani Mendez MD is Attending Physician. sp3 01:58 Abraham Ruelas, BRYAN is Primary Nurse. tm6 02:03 Triage completed. tm6 02:04 Arm band placed on right wrist. tm6 02:06 Patient has correct armband on for positive identification. Bed in low position. Call tm6 light in reach. Side rails up X 1. Provided Education on: use of call aguila. Client placed on continuous cardiac and pulse oximetry monitoring. NIBP monitoring applied. Pulse ox on. NIBP on. Door closed. Noise minimized. 02:17 Inserted saline lock: 20 gauge in right forearm, using aseptic technique. tm6 02:17 Basic Metabolic Panel Sent. tm6 02:17 CBC with Diff Sent. tm6 02:17 LFT's Sent. tm6 02:17 Magnesium Sent. tm6 02:17 NT PRO-BNP Sent. tm6 02:17 Troponin HS Sent. tm6 02:25 XRAY Chest (1 view) In Process Unspecified. EDMS 02:34 EKG done, by ED staff, reviewed by Rajani Mendez MD. oe 03:08 Report received from bryan Rosario. bm8 04:22 No provider procedures requiring assistance completed. IV discontinued, intact, bm8 bleeding controlled, No redness/swelling at site. Pressure dressing applied. Administered Medications: 02:42 Drug: DuoNeb Nebulize (3:1) (2.5 mg - 0.5 mg) 3 ml Nebulizer once Route: Nebulizer; tm6 03:10 Follow up: Response: No adverse reaction bm8 02:42 Drug: MethylPrednisoLONE IVP 125 mg IVP once Route: IVP; Site: right forearm; tm6 03:10 Follow up: Response: No adverse reaction bm8 Medication: 02:06 VIS not applicable for this client. tm6 Outcome: 04:18 Discharge ordered by . sp3 04:22 Discharged to home ambulatory, bm8 04:22 Condition: stable 04:22 Discharge instructions given to patient, Instructed on discharge instructions, follow up and referral plans. medication usage, safety practices, Demonstrated understanding of instructions, follow-up care, medications, Prescriptions given X 1, 04:26 Patient left the ED. bm8 Signatures: Dispatcher [employer] EDMS Scott Lind Setul, MD MD sp3 Ninfa Real Tawney RN RN tm6 Prosper Barrett RN RN bm8
[2023-10-17 04:41] VITALS: BP 98/72; TEMP 97.8; O2SAT 96
--- NOTE | 2023-10-17 12:18 | RAD REPORT ---
EXAM DESCRIPTION: RAD - Chest Single View - 10/17/2023 2:23 am CLINICAL HISTORY: COPD COMPARISON: None TECHNIQUE: Single AP view of the chest. FINDINGS: Left-sided cardiac conduction device noted. Lung volumes adequate. Cardiac silhouette is normal in size. No pneumothorax. No large pleural effusion. No focal consolidation. No acute bony finding. IMPRESSION: No evidence of acute cardiopulmonary disease. Electronically signed by: Idalia Thomas MD 10/17/2023 04:52 AM CDT Z9 Due to temporary technical issues with the PACS/Fluency reporting system, reports are being signed by the in house radiologist without review as a courtesy to ensure prompt reporting. The interpreting r adiologist is fully responsible for the content of the report.
--- NOTE | 2023-10-18 12:13 | EKG ---
Test Date: 2023-10-17 Test Time: 02:27:10 Slotter Operator: TAMIKA MEASUREMENT RESULTS: Intervals: Rate: 111 MO: QRSD: 124 QT: 120 QTc: 163 [place]: P: MO: QRS: -86 T: 0 INTERPRETIVE STATEMENTS: Demand pacemaker, interpretation is based on intrinsic rhythm Undetermined rhythm Left axis deviation Inferior infarct, age undetermined Anterolateral infarct, age undetermined Abnormal ECG Compared to ECG 09/21/2023 17:25:52 Left-axis deviation now present Myocardial infarct finding now present Sinus rhythm no longer present Sinus arrhythmia no longer present ST (T wave) deviation no longer present Electronically Signed On 10-18-23 12:10:50 CDT by Denny French
== END 2023-10-17 04:26 | disposition home or self-care (01) ==
LOC: ER 01:46
DX: J44.1 Chronic obstructive pulmonary disease with (acute) exacerbation (principal)
CPT/HCPCS: 93005; 85025; 80048; 36415; 83735; 80076; 84484; 83880; 71045; 94640; 96374; 99285; J7613; J7644; J2919